=== PATIENT | male | born 1980 ===

== ENCOUNTER 2024-01-14 09:08 | Outpatient (RCR) | payer OTHER, BC, SELFPAY | END 2024-01-14 23:59 | disposition home or self-care (01) | LOC: RST 09:08 | PROVIDERS: ATTENDING PHYSICIAN Psychiatry & Neurology Neurology | DX: F07.81 Postconcussional syndrome (principal); R41.841 Cognitive communication deficit; R47.02 Dysphasia | CPT/HCPCS: 96125; 97129; 97130 ==

== ENCOUNTER 2024-02-08 09:21 | Outpatient (RCR) | payer OTHER, BC, SELFPAY | END 2024-02-08 23:59 | disposition home or self-care (01) | LOC: RST 09:21 | PROVIDERS: ATTENDING PHYSICIAN Psychiatry & Neurology Neurology | DX: F07.81 Postconcussional syndrome (principal); R41.841 Cognitive communication deficit; R47.02 Dysphasia; X58.XXXD Exposure to other specified factors, subsequent encounter; Y93.9 Activity, unspecified; Y92.89 Other specified places as the place of occurrence of the external cause; Y99.0 Civilian activity done for income or pay; Z87.820 Personal history of traumatic brain injury | CPT/HCPCS: 97129; 97130 ==

== ENCOUNTER 2024-03-14 09:20 | Outpatient (RCR) | payer OTHER, BC, SELFPAY | END 2024-03-14 23:59 | disposition home or self-care (01) | LOC: RST 09:20 | PROVIDERS: ATTENDING PHYSICIAN Psychiatry & Neurology Neurology | DX: F07.81 Postconcussional syndrome (principal); R41.841 Cognitive communication deficit; R47.02 Dysphasia | CPT/HCPCS: 97129; 97130 ==

== ENCOUNTER 2024-04-13 08:39 | Outpatient (RCR) | payer OTHER, BC, SELFPAY | END 2024-04-13 23:59 | disposition home or self-care (01) | LOC: RST 08:39 | PROVIDERS: ATTENDING PHYSICIAN Psychiatry & Neurology Neurology | DX: F07.81 Postconcussional syndrome (principal); R41.841 Cognitive communication deficit; R47.02 Dysphasia | CPT/HCPCS: 97129; 97130 ==

== ENCOUNTER 2024-05-05 09:32 | Outpatient (RCR) | payer OTHER, BC, SELFPAY | END 2024-05-05 23:59 | disposition home or self-care (01) | LOC: RST 09:32 | PROVIDERS: ATTENDING PHYSICIAN Psychiatry & Neurology Neurology | DX: R47.02 Dysphasia (principal); F07.81 Postconcussional syndrome (principal); R41.841 Cognitive communication deficit | CPT/HCPCS: 97129; 97130 ==

== ENCOUNTER 2024-06-09 15:14 | Outpatient (RCR) | payer OTHER, BC, SELFPAY | END 2024-06-09 23:59 | disposition home or self-care (01) | LOC: RST 15:14 | PROVIDERS: ATTENDING PHYSICIAN Psychiatry & Neurology Neurology | DX: F07.81 Postconcussional syndrome (principal); R41.841 Cognitive communication deficit; R47.02 Dysphasia | CPT/HCPCS: 97129; 97130 ==

== ENCOUNTER 2024-07-07 15:13 | Outpatient (RCR) | payer OTHER, BC, SELFPAY | END 2024-07-07 23:59 | disposition home or self-care (01) | LOC: RST 15:13 | PROVIDERS: ATTENDING PHYSICIAN Psychiatry & Neurology Neurology | DX: F07.81 Postconcussional syndrome (principal); R41.841 Cognitive communication deficit; R47.02 Dysphasia | CPT/HCPCS: 97129; 97130 ==

== ENCOUNTER 2024-07-21 08:32 | Outpatient (RCR) | payer OTHER, BC, SELFPAY | END 2024-08-10 12:53 | disposition home or self-care (01) | LOC: RST 08:32 | PROVIDERS: ATTENDING PHYSICIAN Psychiatry & Neurology Neurology | DX: F07.81 Postconcussional syndrome (principal); R41.841 Cognitive communication deficit; R47.02 Dysphasia | CPT/HCPCS: 97129; 97130 ==

== ENCOUNTER 2024-10-29 10:01 | Emergency (ER) | payer BC, SELFPAY ==
[2024-10-29 10:05] VITALS: BP 180/114
--- NOTE | 2024-10-29 10:54 | ED.GENMED ---
History of Present Illness
General
Chief Complaint: Oral/Mouth Problem
Source: patient
Time Seen by Provider: 10/29/24 10:40
History of Present Illness
History of Present Illness:
44-year-old male presenting to the emergency department for evaluation of left-sided facial/jaw pain that began yesterday, worse today stating he felt as if it were going down into his neck and throat area prompting him to come to the ER today.
Patient is not aware of any fevers. He did take some Motrin yesterday with minimal relief. He does note a history of dental issues but states it does not seem to be related to any tooth ache or pain. Patient is unaware of any other symptoms and
notes that he is still able to eat/drink and denies any difficulty swallowing.
Past History
Past History
ED Past Medical History: None
ED Past Surgical History: Orthopedic
Social History
Tobacco: Smoker (Half pack per day)
Alcohol: None
Drug: None
Personal: Single
Living: with family
Review of Systems
Review of Systems
All Other Systems: ROS reviewed and negative except as documented in HPI and ROS
Phy Exam
Physical Exam
Physical Exam:
GENERAL: Alert , in no apparent distress
HEAD: NCAT
EYE: conjunctiva clear
NECK: Supple, edema overlying the TMJ with ttp, no erythema. Tenderness extends down the anterolateral neck. 2 finger trismus 2/2 pain
ENT: o/p clr, mmm. no tonsillar edema/exudates, poor dentition with multiple dental caries/tooth decay/eroded enamel. No abscess
CARDIAC: Regular rate and rhythm
LUNGS: Clear breath sounds bilaterally, no acute respiratory distress, no wheezes/rales/rhonchi
NEUROLOGICAL: Alert and oriented
SKIN: Warm and dry, skin intact.
MUSCULOSKELETAL: well perfused.
PSYCH: Normal and appropriate interaction.
Scores
Heart Failure Risk
Heart Failure Risk Score: Not Applicable
Heart Score for Chest Pain Patients
STEMI patient?: Not applicable
Withdrawal Assessment of Alcohol
Withdrawal Assessment Completed?: Not applicable
Course
Orders/Labs/Results
Orders:
Orders
10/29/24 10:45
CT Neck With Iv Contrast Urgent
Comment:
Reason For Exam: edema, pain x 1 day
Ketorolac [Toradol] 30 mg IV NOW STA
10/29/24 11:13
Complete Blood Count/With Diff Urgent
Comprehensive Metabolic Panel Urgent
Monotest Urgent
Abnormal Lab Results
10/29/24
11:13
Absolute Monos (auto) 0.7 H 10^3/uL
(0.1-0.6)
Absolute Eos (auto) 0.8 H 10^3/uL
(0-0.7)
Lymphocytes % 19.6 L %
(20.5-51.1)
Eosinophils % 7.8 H %
(0-6)
Glucose 102 H mg/dl
(70-99)
10/29/24 11:13
10/29/24 11:13
Vital Signs
Initial and Last Documented VS:
Initial Vital Signs
Temp Pulse Resp BP Pulse Ox
98.1 F 102 18 180/114 96
10/29/24 10:05 10/29/24 10:05 10/29/24 10:05 10/29/24 10:05 10/29/24 10:05
Last Documented Vital Signs
Temp Pulse Resp BP Pulse Ox
98.1 F 102 18 155/103 97
10/29/24 10:05 10/29/24 10:05 10/29/24 10:05 10/29/24 11:15 10/29/24 11:15
MDM/Problems Addressed
Differential Diagnosis Includes:
TMJ, dental abscess, parotitis, salivary stone, alexander's angina, mono
MDM/Problems Addressed:
44-year-old male presenting to the emergency department for evaluation of left-sided jaw pain x 1 day, no improvement with Motrin at home. No fevers. He does have observable edema overlying the TMJ on the left with tenderness directly in this
area. 2 finger trismus secondary to the pain. Question lymphadenopathy versus abscess versus parotitis versus stone. Patient does smoke half pack per day. He does have increased risk for infection. Will obtain CT to further evaluate.
*Radiology
Radiology exam reviewed: radiology read reviewed
*Pulse Oximetry
Patient hypoxic: no
*Critical Care Note
Total Time (30-74mins, 75-104mins- exclusive of procedures): Not Applicable
Patient Management
Escalation/DeEscalation of care consider admission/obs:
CT shows left-sided tonsillitis without any abscess. Will treat with amoxicillin 3 times daily x 10 days. Suspect lymphadenopathy is the cause of patient's edema in the preauricular space. NSAIDs/Tylenol advised pain as needed. Otherwise stable
for discharge home and aware of return precautions.
ED Attending Note
-
Portions of this chart may have been created with voice recognition software.� Occasional wrong word or��sound alike� substitutions may have occurred due to the inherent limitations of voice recognition software.
Discharge Plan
Departure
Patient Disposition: Home (Routine Discharge)
Date of Disposition: 10/29/24
Time of Disposition: 12:16
Patient with high blood pressure during this ER visit?: Yes
Discharge Problem:
Acute tonsillitis
Prescriptions:
New
amoxicillin 500 mg tablet
500 mg PO Q8H 10 Days Qty: 30 0RF
Referrals:
[facility] [Outside] (Please call for appointment)
NONE,* [Family Provider] -
Interventions
Interventions:
*Risk Screen - Suicide Last Done: 10/29/24 10:05
*General Assessment Last Done: 10/29/24 10:05
*Neglect/Abuse Screening Last Done: 10/29/24 10:05
ED- Fall Risk Assessment Last Done: 10/29/24 11:27
*ED COVID-19 Vaccine History Last Done: 10/29/24 10:05
*Nursing Disposition Last Done: 10/29/24 12:25
Discharge Date and Time
Discharge Date/Time: 10/29/24 12:26
Print Language: MONTSERRATIAN
[2024-10-29 11:14] VITALS: BMI 47.6
[2024-10-29 11:15] VITALS: BP 155/103
[2024-10-29] MEDS: TORADOL 30 MG IV (11:20)
[2024-10-29 11:27] LABS: % Eosinophils 7.8 % (0-6); % Immature Granulocytes 0.3 % (0-0.5); % Lymphocytes 19.6 % (20.5-51.1); % Neutrophils 64.3 % (42.2-75.2); Absolute Basophils 0.1 10^3/uL (0-0.2); Absolute Eosinophils 0.8 10^3/uL (0-0.7); Absolute Lymphocytes 1.9 10^3/uL (1.2-3.4); Absolute Monocytes 0.7 10^3/uL (0.1-0.6); Absolute Neutrophils 6.2 10^3/uL (1.4-6.5); Hemoglobin 16.1 g/dL (13.0-18.0); Mean Corp Hgb Conc. 34.3 g/dL (33.0-37.0); Mean Corpuscular Hgb 29.5 pg (27.0-31.0); Mean Corpuscular Volume 86.1 fL (80.0-94.0); Mean Platelet Volume 9.6 fL (7.4-10.4); Nucleated Red Blood Cells % 0 % (-); Platelet Count 291 10^3/uL (130-400); Red Blood Cell Count 5.46 10^6/uL (4.70-6.10); Red Cell Dist. Width 13.1 % (11.5-14.5); White Blood Cell Count 9.6 10^3/uL (4.8-10.8)
[2024-10-29 11:42] LABS: ALT (SGPT) 43 U/L (0-50); AST (SGOT) 25 U/L (17-59); Albumin 4.2 g/dl (3.5-5.0); Alkaline Phosphatase 81 U/L (38-126); Blood Urea Nitrogen 9 mg/dl (9-20); Calcium 9.2 mg/dl (8.4-10.2); Carbon Dioxide 26 mmol/L (22-30); Chloride 102 mmol/L (98-107); Estimated Creatinine Clearance > 125 ml/min; Glucose 102 mg/dl (70-99); Potassium 4.5 mmol/L (3.5-5.1); Sodium 137 mmol/L (135-145); Total Bilirubin 0.7 mg/dl (0.2-1.3); Total Protein 6.9 g/dl (6.3-8.2); eGFR > 60.00
[2024-10-29 11:45] LABS: Monotest Negative (Negative)
== END 2024-10-29 12:26 | disposition home or self-care (01) ==
LOC: EMR 10:01
PROVIDERS: Physician Assistant Medical; EMERGENCY PHYSICIAN Student in an Organized Health Care Education/Training Program
DX: J03.90 Acute tonsillitis, unspecified (principal); F17.210 Nicotine dependence, cigarettes, uncomplicated
CPT/HCPCS: 99284; 96374; 70491; 80053; 85025; 86308; Q9967

== ENCOUNTER 2025-06-22 14:29 | Emergency (ER) | payer OTHER, SELFPAY ==
[2025-06-22 14:36] VITALS: BP 172/110
[2025-06-22 15:04] LABS: Hematocrit 45.3 % (39.0-52.0); Hemoglobin 15.4 g/dL (13.0-18.0); Mean Corp Hgb Conc. 34.0 g/dL (33.0-37.0); Mean Corpuscular Volume 85.5 fL (80.0-94.0); Nucleated Red Blood Cells % 0 % (-); Platelet Count 303 10^3/uL (130-400); Red Cell Dist. Width 12.8 % (11.5-14.5)
[2025-06-22 15:19] LABS: ALT (SGPT) 40 U/L (0-50); AST (SGOT) 28 U/L (17-59); Albumin 4.1 g/dl (3.5-5.0); Alkaline Phosphatase 69 U/L (38-126); Blood Urea Nitrogen 12 mg/dl (9-20); Calcium 9.5 mg/dl (8.4-10.2); Carbon Dioxide 26 mmol/L (22-30); Chloride 106 mmol/L (98-107); Glucose 115 mg/dl (70-99); Potassium 4.4 mmol/L (3.5-5.1); Sodium 138 mmol/L (135-145); Total Protein 7.0 g/dl (6.3-8.2); eGFR > 60.00
[2025-06-22 15:29] LABS: Troponin I < 0.012 ng/ml
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
[2025-06-22 16:18] VITALS: BP 148/104
[2025-06-22 16:30] VITALS: BP 152/111
[2025-06-22] MEDS: DUONEB 3 ML INH (16:59)
[2025-06-22 17:00] VITALS: BP 145/114
[2025-06-22 17:02] VITALS: BMI 50.2
[2025-06-22 17:15] VITALS: BP 145/99
[2025-06-22 18:30] VITALS: BP 147/96
== END 2025-06-22 19:20 | disposition home or self-care (01) ==
LOC: EMR 14:29
PROVIDERS: Physician Assistant; EMERGENCY PHYSICIAN Emergency Medicine
DX: R07.9 Chest pain, unspecified (principal); I10 Essential (primary) hypertension; F17.210 Nicotine dependence, cigarettes, uncomplicated; E66.9 Obesity, unspecified; J45.909 Unspecified asthma, uncomplicated; I45.10 Unspecified right bundle-branch block
CPT/HCPCS: 94640; 99285; 71046; 80053; 83880; 84484; 85025; 93005

== ENCOUNTER → 2025-07-17 09:43 | Outpatient (REF) | payer OTHER, SELFPAY | LOC: PET 09:43 | PROVIDERS: ATTENDING PHYSICIAN Internal Medicine Cardiovascular Disease | DX: I10 Essential (primary) hypertension (principal); R06.02 Shortness of breath; R07.2 Precordial pain | CPT/HCPCS: 78431; A9555; J2785 ==

== ENCOUNTER → 2025-07-25 12:51 | Outpatient (REF) | payer OTHER, SELFPAY ==
--- NOTE | 2025-07-25 14:22 | CARDSERVLU ---
Echocardiogram with Lumason completed after protocol screening completed. Allergies verified.
Patent IV site: rt hand
IV site flushed with 0.9% NaCl pre and post administration.
Diluted bolus method utilized to enhance visualization of ventricular quiroz.
Total volume given: __2.0_ mL
Patient tolerated all procedures well without complications.
#22 arline placed Rt hand. Lumason given. INT d/c'd. pressure held. No bleeding noted.
== END ==
LOC: RCS 12:51
PROVIDERS: ATTENDING PHYSICIAN Internal Medicine Cardiovascular Disease
DX: I10 Essential (primary) hypertension (principal); R06.02 Shortness of breath; R07.2 Precordial pain
CPT/HCPCS: 93306; Q9950